=== PATIENT | female | born 1945 | race Caucasian/White ===

== ENCOUNTER 2018-01-27 10:01 | Day surgery (SDC) | payer MEDICARE ==
[~2018-01-27] VITALS: Ht 162.6 cm; Wt 102.1 kg
[~2018-01-27 10:01] MED LIST: ACETAZOLAMIDE500 M1 PO; ALEVE220 M1 PO; ALLOPURINOL100 MG PO; ASPIRIN EC81 MG PO; BISOPROLOL FUMAR5 MG PO; CAL MAG ZINC +1 EAC1 PO; CO Q-10300 MG PO; COQ-10100 MG PO; COQ-1030 MG PO; COUMADIN4 MG PO; DILAUDID4 MG PO; DILTIAZEM ER180 MG PO; ESTRADIOL0.5 MG PO; ESTRADIOL1 EA10 TD; FUROSEMIDE40 MG PO; IRON236 MG PO; LANTUS100 UNITS/ SUB-Q; LEVAQUIN500 MG PO; LIPITOR10 MG PO; LISINOPRIL20 MG PO; LOVASTATIN40 MG PO; MAG-OXIDE400 MG PO; MAGNESIUM250 M1 PO; METFORMIN HCL500 M1 PO; METFORMIN HCL500 M2 PO; METFORMIN HCL500 MG PO; METOPROLOL TART50 MG PO; MIRALAX17 GM PO; NORCO 7.5-3251 EACH PO; POTASSIUM GLUC500 MG PO; POTASSIUM99 M1 PO; PRILOSEC20 MG PO; SYNTHROID50 MCG PO; VITAMIN C500 M1 PO; VITAMIN C500 M4 PO; WARFARIN SODIUM4 MG PO; XARELTO10 MG PO
[2018-04-27] MEDS ORDERED: LORATADINE10 M2 PO (09:38)
[2018-04-27] MEDS ORDERED: PROAIR HFA8.5 GM INH (09:38)
[2018-05-11] MEDS ORDERED: COMBIGAN EYE DRO5 ML OU (09:18)
== END 2018-01-27 12:40 | disposition home or self-care (01) ==
LOC: OPS 10:01 → DS 10:01 → OPS 11:15
PROVIDERS: Ophthalmology
PROC: 08923ZZ Drainage of Right Anterior Chamber, Percutaneous Approach (ICD-10-PCS; principal; 2018-01-27 11:15)
DX: H40.1133 Primary open-angle glaucoma, bilateral, severe stage (principal); I48.91 Unspecified atrial fibrillation; E11.9 Type 2 diabetes mellitus without complications; E78.00 Pure hypercholesterolemia, unspecified; M54.9 Dorsalgia, unspecified; K21.9 Gastro-esophageal reflux disease without esophagitis; I10 Essential (primary) hypertension; M19.90 Unspecified osteoarthritis, unspecified site; Z90.49 Acquired absence of other specified parts of digestive tract; Z90.710 Acquired absence of both cervix and uterus; Z96.653 Presence of artificial knee joint, bilateral; Z98.49 Cataract extraction status, unspecified eye; Z98.890 Other specified postprocedural states; Z88.5 Allergy status to narcotic agent; Z88.8 Allergy status to other drugs, medicaments and biological substances; Z79.01 Long term (current) use of anticoagulants; Z79.899 Other long term (current) drug therapy
CPT/HCPCS: 00140; J2250

== ENCOUNTER 2018-02-10 07:09 | Day surgery (SDC) | payer MEDICARE ==
[~2018-02-10] VITALS: Ht 162.6 cm; Wt 102.1 kg
[2018-04-27] MEDS ORDERED: PROAIR HFA8.5 GM INH (09:38)
[2018-04-27] MEDS ORDERED: LORATADINE10 M2 PO (09:38)
[2018-05-11] MEDS ORDERED: COMBIGAN EYE DRO5 ML OU (09:18)
== END 2018-02-10 08:34 | disposition home or self-care (01) ==
LOC: DS 07:09 → OPS 07:09 → DS 08:00 → OPS 08:34
PROVIDERS: Ophthalmology
PROC: 08933ZZ Drainage of Left Anterior Chamber, Percutaneous Approach (ICD-10-PCS; principal; 2018-02-10 08:00)
DX: H40.1133 Primary open-angle glaucoma, bilateral, severe stage (principal); I48.2 Chronic atrial fibrillation; E11.9 Type 2 diabetes mellitus without complications; I10 Essential (primary) hypertension; Z79.899 Other long term (current) drug therapy; Z79.4 Long term (current) use of insulin
CPT/HCPCS: 00140; J2250

== ENCOUNTER 2018-05-28 08:15 | Observation (INO) | payer MEDICARE ==
[~2018-05-28] VITALS: Ht 162.6 cm; Wt 103.6 kg
[~2018-05-28 08:15] MED LIST changes: +COMBIGAN EYE DRO5 ML OU; +LORATADINE10 M2 PO; +PROAIR HFA8.5 GM INH
[2018-05-28] MEDS ORDERED: PRED FORTE1 ML OP (13:57)
[2018-05-28] MEDS ORDERED: OMEPRAZOLE20 MG PO ×2 (15:41)
[2018-05-28] MEDS ORDERED: SUCRALFATE1 GM PO (15:43)
--- NOTE | 2018-05-29 11:29 | EKG ---
[facility] [address] [facility] [place] [address] Signed Atrial fibrillation with intermittent aberrant ventricular conduction Abnormal ECG No previous ECGs available Confirmed by FADI CANTU MD ([id number]) on 05/29/2018 11:29:17 AM Electronically Signed By: FADI CANTU MD 05/29/18 1129 PATIENT NAME: BENTLEY MARTÍNEZ Electrocardiogram DATE OF : 43 PHYSICIAN: FADI CANTU MD REPORT #: [id number] REPORT IS CONFIDENTIAL AND NOT TO BE RELEASED WITHOUT AUTHORIZATION
== END 2018-05-28 16:28 | disposition home or self-care (01) ==
LOC: ED 08:15 → MS 08:17
PROVIDERS: ADMIT Internal Medicine
DX: K21.0 Gastro-esophageal reflux disease with esophagitis (principal); I10 Essential (primary) hypertension; I48.91 Unspecified atrial fibrillation; E11.9 Type 2 diabetes mellitus without complications; H40.9 Unspecified glaucoma; E78.5 Hyperlipidemia, unspecified; M10.9 Gout, unspecified; Z88.5 Allergy status to narcotic agent; Z88.8 Allergy status to other drugs, medicaments and biological substances; Z79.01 Long term (current) use of anticoagulants; Z79.890 Hormone replacement therapy; Z79.4 Long term (current) use of insulin; Z79.899 Other long term (current) drug therapy
CPT/HCPCS: 71045; 80053; 83690; 84484; 85025; 85610; 93005; 93010; 96374; 99285; G0378

== ENCOUNTER 2018-08-31 09:23 | Emergency (ER) | payer MEDICARE ==
[~2018-08-31] VITALS: Ht 162.6 cm; Wt 103.4 kg
--- OUTSIDE RECORDS SUMMARY | ~2018-08-31 | XMS | Clinical Summary ---
Demographics + + + | Address | [address] | | | [place] [address] | + + + | Home Phone | | + + + | Preferred Language | Unknown | + + + | Marital Status | Single | + + + | Christianity Affiliation | 1013 | + + + | Race | Unknown | + + + | Ethnic Group | Unknown | + + + Author + + + | Author | [facility] [employer] | + + + | Organization | [facility] [facility] | + + + | Address | Unknown | + + + | Phone | Unavailable | + + + Support + + +---------+ + | Name | Relationship | Address | Phone | + + +---------+ + | June Will | ECON | Unknown | | + + +---------+ + | Georgia Moran | ECON | Unknown | | + + +---------+ + Care Team Providers + +------+ + | Care Roof Promenade Tile Setter Name | Role | Phone | + +------+ + | Barry Manzo DO | PP | | + +------+ + Allergies + + + + + + | Active Allergy | Reactions | Severity | Noted | Comments | | | | | Date | | + + + + + + | Lovastatin | Other (See Comments) | Medium | 10/09/20 | Pt cannot remember | | | | | 17 | reaction | + + + + + + | Oxycodone-Acetaminop | Palpitations | Medium | 10/09/20 | | | hen | | | 17 | | + + + + + + | Pravastatin | Other (See Comments) | Medium | 10/09/20 | Pt cannot remember | | | | | 17 | reaction | + + + + + + | Simvastatin | Other (See Comments) | Medium | 10/09/20 | Pt cannot remember | | | | | 17 | reaction | + + + + + + Current Medications + + +---------+---------+------+------+-------+ | Prescription | Sig. | Disp. | Refills | Star | End | Statu | | | | | | t | Date | s | | | | | | Date | | | + + +---------+---------+------+------+-------+ | allopurinol | Take 100 mg by mouth | | | 08/30 | | Activ | | (ZYLOPRIM) 100 MG | daily. | | | 02/16 | | e | | tablet | | | | 17 | | | + + +---------+---------+------+------+-------+ | diltiazem | Take 180 mg by mouth | | | 07/31 | | Activ | | (CARDIZEM CD) 180 MG | daily. | | | 2/20 | | e | | 24 hr capsule | | | | 17 | | | + + +---------+---------+------+------+-------+ | lisinopril | Take 20 mg by mouth | | | 08/30 | | Activ | | (ZESTRIL) 20 MG | daily. | | | 20 | | e | | tablet | | | | 17 | | | + + +---------+---------+------+------+-------+ | levothyroxine | Take 0.5 mcg by | | | 10/1 | | Activ | | (SYNTHROID) 50 MCG | mouth daily. | | | 20 | | e | | tablet | | | | 17 | | | + + +---------+---------+------+------+-------+ | omeprazole | Take 20 mg by mouth | | | 10/ | | Activ | | (PRILOSEC) 20 MG | daily. | | | 02/16 | | e | | capsule | | | | 17 | | | + + +---------+---------+------+------+-------+ | metFORMIN | Take 500 mg by mouth | | | 10/1 | | Activ | | (GLUCOPHAGE) 500 MG | 2 (two) times | | | 02/16 | | e | | tablet | daily. | | | 17 | | | + + +---------+---------+------+------+-------+ | warfarin | Take 4.5 mg by mouth | | | 08 | | Activ | | (COUMADIN) 4 MG | daily. | | | 12/19 | | e | | tablet | | | | 17 | | | + + +---------+---------+------+------+-------+ | potassium chloride | Take 20 mEq by mouth | | | 10/ | | Activ | | SA (BRADY CISNEROS) | daily. | | | /20 | | e | | 20 MEQ tablet | | | | 17 | | | + + +---------+---------+------+------+-------+ | atorvastatin | Take 10 mg by mouth | | | 11/0 | | Activ | | (LIPITOR) 10 MG | daily. | | | 2/20 | | e | | tablet | | | | 17 | | | + + +---------+---------+------+------+-------+ | bisoprolol | Take 5 mg by mouth | | | / | | Activ | | (ZEBETA) 5 MG tablet | daily. | | | 2/20 | | e | | | | | | 17 | | | + + +---------+---------+------+------+-------+ | insulin glargine | Inject 25 Units into | | | | | Activ | | (LANTUS) 100 UNIT/ML | the skin nightly. | | | | | e | | injection | | | | | | | + + +---------+---------+------+------+-------+ | | Place 1 drop into | | | | | Activ | | brimonidine-timolol | both eyes every 12 | | | | | e | | (COMBIGAN) 0.2-0.5 % | (twelve) hours. | | | | | | | ophthalmic solution | | | | | | | + + +---------+---------+------+------+-------+ | lidocaine | Apply up to 10 ml | 50 mL | 1 | / | 10/01 | Activ | | (XYLOCAINE) 4 % | topically to wound | | | 08/19 | 08/19 | e | | external solution | base during dressing | | | 17 | 18 | | | | changes every other | | | | | | | | day. | | | | | | + + +---------+---------+------+------+-------+ | latanoprost | Place 1 drop into | | | 12/ | | Activ | | (XALATAN) 0.005 % | both eyes 2 (two) | | | 3/20 | | e | | ophthalmic solution | times daily. | | | 17 | | | + + +---------+---------+------+------+-------+ | acetaZOLAMIDE | Take 125 mg by mouth | | | 12/31 | | Activ | | (DIAMOX) 250 MG | 3 (three) times | | | 05/19 | | e | | tablet | daily. Take 12/01 a | | | 18 | | | | | tablet twice per day | | | | | | | | | | | | | | + + +---------+---------+------+------+-------+ | pilocarpine | Place 1 drop into | | | | | Activ | | (PILOCAR) 1 % | both eyes 3 (three) | | | | | e | | ophthalmic solution | times daily. | | | | | | + + +---------+---------+------+------+-------+ | prednisoLONE | Place 1 drop into | | | | | Activ | | acetate (PRED FORTE) | both eyes every 4 | | | | | e | | 1 % ophthalmic | (four) hours. 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) | 10/09/2017 | + + + | Hyperlipidemia | 10/09/2017 | + + + | Atrial fibrillation (HCC) | 10/09/2017 | + + + | Hypothyroidism | 10/09/2017 | + + + | Skin ulcer of left calf, limited to breakdown of skin (HCC) | 10/09/2017 | + + + | Venous ulcer of left leg (HCC) | 10/09/2017 | + + + | Venous insufficiency | 10/09/2017 | + + + Encounters +--------+ + + + + | Date | Type | Specialty | Care Team | Description | +--------+ + + + + | 06/15/ | Documentati | | Shira Lainez | Other (alba | | 2018 | on Only | | J, [facility]ES[facility] | monitor) | +--------+ + + + + from Last 3 Months Family History + + +------+ + | Medical History | Relation | Name | Comments | + + +------+ + | Aneurysm | Mother | | | + + +------+ + | Coronary art dis | Paternal | | | | | Grandfath | | | | | er | | | + + +------+ + + +------+ + + | Relation | Name | Status | Comments | + +------+ + + | Father | | | unknown history | + +------+ + + | Mother | | | | + +------+ + + | Paternal Grandfather | | | | + +------+ + + Social History + +-------+ +--------+------+ | Tobacco Use | Types | Packs/Day | Years | Date | | | | | Used | | + +-------+ +--------+------+ | Never Smoker | | | | | + +-------+ +--------+------+ + +---+---+---+ | Smokeless Tobacco: | | | | | Never Used | | | | + +---+---+---+ + + +---------+ + | Alcohol Use | Drinks/We | oz/Week | Comments | | | ek | | | + + +---------+ + | No | | | rare | + + +---------+ + + + + | Sex Assigned at | Date Recorded | | | | + + + | Not on file | | + + + Last Filed Vital Signs + + + + | Vital Sign | Reading | Time Taken | + + + + | Blood Pressure | 140/82 | 02/10/2018 1:51 PM PDT | + + + + | Pulse | 79 | 02/10/2018 1:51 PM PDT | + + + + | Temperature | 36.4 C (97.5 F) | 02/10/2018 1:51 PM PDT | + + + + | Respiratory Rate | 18 | 01/20/2018 1:39 PM PST | + + + + | Oxygen Saturation | 98% | 12/02/2017 11:14 AM PST | + + + + | Inhaled Oxygen | - | - | | Concentration | | | + + + + | Weight | 103 kg (227 lb) | 12/02/2017 11:14 AM PST | + + + + | Height | 160 cm (5' 3") | 12/02/2017 11:14 AM PST | + + + + | Body Mass Index | 40.21 | 12/02/2017 11:14 AM PST | + + + + Plan of Treatment +--------+ + + + + | Date | Type | Specialty | Care Team | Description | +--------+ + + + + | 11/17/ | Initial | | Carmelita Tucker, | | | 2017 | consult | | MD Arianna Allen | | | | | | Dr [address], | | | | | | [place] [address] | | | | | | [phone] | | | | | | | | +--------+ + + + + + + + + + | Health Maintenance | Due Date | Last Done | Comments | + + + + + | Diabetic Eye Exam | | | | | | 4 | | | + + + + + | Diabetic Foot Exam | | | | | | 4 | | | + + + + + | Hemoglobin A1c | | | | | | 4 | | | + + + + + | Microalbumin | | | | | Screening | 4 | | | + + + + + | Vaccine: | | | | | Dtap/Tdap/Td (1 - | 3 | | | | Tdap) | | | | + + + + + | Breast Cancer | | | | | Screening | 4 | | | | (Mammogram) | | | | + + + + + | Colon Cancer | | | | | Screening | 4 | | | | (Colonoscopy) | | | | + + + + + | Vaccine: Zoster (1 | | | | | of 2) | 4 | | | + + + + + | DEXA SCAN SCREENING | | | | | | 9 | | | + + + + + | Vaccine: | | | | | Pneumococcal 65+ | 9 | | | | Low/Medium Risk (1 | | | | | of 2 - PCV13) | | | | + + + + + | Vaccine: Influenza | | | | | (#1) | 8 | | | + + + + + Results Not on filefrom Last 3 Months Insurance + +--------+ +------+-------+ + | Payer | Benefi | Subscriber | Type | Phone | Address | | | t Plan | ID | | | | | | / | | | | | | | Group | | | | | + +--------+ +------+-------+ + | MEDICARE | MEDICA | [id number] | | | [address] | | | RE | | | | [place] [id number] | | | IP-OP | | | | | + +--------+ +------+-------+ + | [facility] | [place] | [id number] | | | | | | | | | | | | | HEALTH | | | | | | | CARE - | | | | | | | AARP | | | | | + +--------+ +------+-------+ + + +--------+ +--------+ + + | Guarantor Name | Accoun | Relation to | Date | Phone | Billing Address | | | t Type | Patient | of | | | | | | | | | | + +--------+ +--------+ + + | BENTLEY LUBIN | Person | Self [birth year] Home: | [address] | | | al/Fam | | [phone] | [phone] [address] [place] | | | loan | | | [phone] | [phone] | + +--------+ +--------+ + +
--- OUTSIDE RECORDS SUMMARY | ~2018-08-31 | XMS | Encounter Summary ---
Demographics + + + | Address | [address] | | | [place] [address] | + + + | Home Phone | | + + + | Preferred Language | Unknown | + + + | Marital Status | Single | + + + | Uatsdin Affiliation | 1013 | + + + | Race | Unknown | + + + | Ethnic Group | Unknown | + + + Author + + + | Author | [facility] [employer] [facility] | + + + | Organization | [facility] | + + + | Address [...] Team Providers + +------+ + | Care Airfield Services Officer Name | Role | Phone | + +------+ + | Barry Manzo DO | PCP | | + +------+ + Reason for Visit +--------+ + | Reason | Comments | +--------+ + | Other | holter monitor | +--------+ + Encounter Details +--------+ + + + + | Date | Type | Department | Care Team | Description | +--------+ + + + + | 06/15/ | Connor | [facility] | Shira Lainez | Other (holter | | 2018 | on Only | Cardiology [facility] | Man, LESLI | monitor) | | | | [address] | | | | | | [place] | | | | | | [phone] | | | | | | [phone] | | | +--------+ + + + + Social History + +-------+ +--------+------+ [...] on file | | + + + as of this encounter Plan of Treatment +--------+ + + + + | Date | Type | Specialty | Care Team | Description | +--------+ + + + + | 11/17/ | Initial | Cardiology | Carmelita Tucker, | | | 2018 | consult | | MD Arianna Allen | | | | | | Dr [address], | | | | | | [place] [address] | | | | | | [phone] | | | | | | | | +--------+ + + + + as of this encounter Visit Diagnoses Not on filein this encounter"
[~2018-08-31 09:23] MED LIST changes: +OMEPRAZOLE20 MG PO; +PRED FORTE1 ML OP; +SUCRALFATE1 GM PO; +VENTOLIN HFA18 GM INH
[2018-08-31] MEDS ORDERED: LASIX20 MG PO (11:11)
[2018-08-31] MEDS ORDERED: POTASSIUM CHLO10 MEQ PO (11:11)
== END 2018-08-31 11:23 | disposition home or self-care (01) ==
LOC: ED 09:23
DX: I11.0 Hypertensive heart disease with heart failure (principal); I50.9 Heart failure, unspecified; E11.9 Type 2 diabetes mellitus without complications; I48.91 Unspecified atrial fibrillation; Z88.8 Allergy status to other drugs, medicaments and biological substances; Z79.899 Other long term (current) drug therapy; Z88.5 Allergy status to narcotic agent; Z79.01 Long term (current) use of anticoagulants; Z79.4 Long term (current) use of insulin; Z79.52 Long term (current) use of systemic steroids
CPT/HCPCS: 71046; 80048; 85025; 85610; 85730; 99285

== ENCOUNTER 2022-08-09 15:46 | Emergency (ER) | payer MEDICARE ==
[~2022-08-09] VITALS: Ht 162.6 cm; Wt 103.4 kg
[~2022-08-09 15:46] MED LIST changes: -COUMADIN4 MG PO; +DILTIAZEM 24HR120 M1 PO; +DORZOLAMIDE-TI1 EACH OU; +FML FORTE5 ML OU; +LASIX20 MG PO; +LEVOTHYROXINE50 MCG PO; +LEVOTHYROXINE75 MCG PO; +LISINOPRIL10 MG PO; +POTASSIUM CHLO10 MEQ PO
== END 2022-08-09 18:09 | disposition home or self-care (01) ==
LOC: ED 15:46
DX: U07.1 COVID-19 (principal); I10 Essential (primary) hypertension; E11.9 Type 2 diabetes mellitus without complications; I48.91 Unspecified atrial fibrillation; Z88.8 Allergy status to other drugs, medicaments and biological substances; Z88.5 Allergy status to narcotic agent; Z79.899 Other long term (current) drug therapy; Z79.84 Long term (current) use of oral hypoglycemic drugs; Z79.01 Long term (current) use of anticoagulants; Z79.4 Long term (current) use of insulin
CPT/HCPCS: 87502; 99283; C9803; U0003

== ENCOUNTER 2023-09-29 09:11 | Emergency (ER) | payer MEDICARE, OTHER ==
[~2023-09-29] VITALS: Ht 162.6 cm; Wt 94.9 kg
[~2023-09-29 09:11] MED LIST changes: +FEOSOL325 MG PO; +REPAGLINIDE0.5 MG PO; +VITAMIN C250 MG PO
[2023-09-29 09:33] LABS: EOSINOPHILS 3.5 % (0-6); HEMATOCRIT 35.2 % (35.0-50.0); HEMOGLOBIN 11.9 g/dL (12.0-18.0); LYMPHOCYTES 17.2 % (24-44); MCH 29.4 (27-36); MCHC 33.6 g/dl (30-36); MCV 87.3 fl (81-99); MONOCYTES 9.8 % (0-12); NEUTROPHILS 68.5 % (39-80); PLATELET COUNT 308 K/uL (140-440); RBC 4.04 M/ul (4.3-5.7); RDW 15.9 (10.5-15.0)
[2023-09-29 09:44] LABS: INR 2.43 (0.80-1.30); PROTIME 25.6 Sec (11.2-14.2)
[2023-09-29 09:51] LABS: ALBUMIN 3.5 g/dL (3.4-5.0); ALBUMIN/GLOBULIN RATIO 0.83 (1.1-2.4); ANION GAP 13.3 (7-21); BILIRUBIN, TOTAL 0.6 ng/dL (0.2-1.0); BUN/CREATININE RATIO 15.38 (6.0-28.6); CALCIUM 8.6 mg/dL (8.5-10.1); CREATININE, SERUM 1.04 mg/dL (0.55-1.02); POTASSIUM 4.3 mmol/L (3.5-5.1); PROTEIN, TOTAL 7.7 g/dL (6.4-8.2)
[2023-09-29] MEDS ORDERED: ONDANSETRON HCL4 MG PO (12:04)
[2023-09-29 12:19] VITALS: BP 154/102
--- NOTE | 2023-09-29 22:50 | EKG ---
[facility] [address] [place] [address] Signed Atrial fibrillation with premature ventricular or aberrantly conducted complexes Abnormal ECG When compared with ECG of 28-MAY-2018 08:19, No significant change was found Confirmed by Isiah Díaz MD () on 09/29/2023 10:49:49 PM Electronically Signed By: ISIAH DÍAZ MD 09/29/23 2250 PATIENT NAME: BENTLEY MARTÍNEZ Electrocardiogram DATE OF : 43 PHYSICIAN: ISIAH DÍAZ MD REPORT #: [id number] REPORT IS CONFIDENTIAL AND NOT TO BE RELEASED WITHOUT AUTHORIZATION
== END 2023-09-29 12:15 | disposition home or self-care (01) ==
LOC: ED 09:11
PROVIDERS: Internal Medicine
DX: R42 Dizziness and giddiness (principal); R07.89 Other chest pain; I48.91 Unspecified atrial fibrillation; D64.9 Anemia, unspecified; I10 Essential (primary) hypertension; E11.9 Type 2 diabetes mellitus without complications; Z79.01 Long term (current) use of anticoagulants; Z79.84 Long term (current) use of oral hypoglycemic drugs; Z79.4 Long term (current) use of insulin; Z79.899 Other long term (current) drug therapy; Z88.8 Allergy status to other drugs, medicaments and biological substances; Z88.5 Allergy status to narcotic agent
CPT/HCPCS: 36415; 70450; 71045; 80053; 84484; 85025; 85610; 93005; 93010; J2405

== ENCOUNTER 2024-01-13 09:14 | Emergency (ER) | payer MEDICARE, OTHER ==
[~2024-01-13] VITALS: Ht 162.6 cm; Wt 93.2 kg
[~2024-01-13 09:14] MED LIST changes: +KLOR-CON 1010 MEQ PO; +LANTUS SOL100 UNIT/1 SUB-Q; +MECLIZINE HCL25 MG PO; +ONDANSETRON HCL4 MG PO
--- OUTSIDE RECORDS SUMMARY | 2024-01-13 09:19 | XMS ---
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 Fer has no Care Guidelines for this patient. [facility] NOTE: Visits indicate total known visits. ED/C VISIT TRACKING (12 MO.) 01/13/2024 09:[address] [facility] [place] TYPE: Emergency COMPLAINT: - NOSE BLEED 01/07/2024 07:44 [facility] [place] TYPE: Emergency COMPLAINT: - CHEST PAIN, SOB DIAGNOSES: - Allergy status to narcotic agent - Allergy status to other drugs, medicaments and biological substances - Chest pain, unspecified - Heart failure, unspecified - Hypertensive heart disease with heart failure - buttermilk drier operator (current) use of anticoagulants - buttermilk drier operator (current) use of insulin - buttermilk drier operator (current) use of oral hypoglycemic drugs - Other buttermilk drier operator (current) drug therapy - Type 2 diabetes mellitus without complications - Unspecified atrial fibrillation - Unspecified glaucoma 09/29/2023 09:12 [facility] [place] TYPE: Emergency COMPLAINT: - CHEST PAIN DIAGNOSES: - Allergy status to narcotic agent - Allergy status to other drugs, medicaments and biological substances - Anemia, unspecified - Dizziness and giddiness - Essential (primary) hypertension - buttermilk drier operator (current) use of anticoagulants - buttermilk drier operator (current) use of insulin - nursing home (current) use of oral hypoglycemic drugs - Other chest pain - Other [facility] (current) drug therapy - Type 2 diabetes mellitus without complications - Unspecified atrial fibrillation INPATIENT VISIT TRACKING (12 MO.) No inpatient visits to display in this time frame [email or web address]
[2024-01-13 09:58] LABS: BASOPHILS 0.9 % (0-2); EOSINOPHILS 2.9 % (0-6); HEMATOCRIT 35.2 % (35.0-50.0); HEMOGLOBIN 11.6 g/dL (12.0-18.0); LYMPHOCYTES 15.7 % (24-44); MCH 27.9 (27-36); MCHC 32.8 g/dl (30-36); MONOCYTES 8.2 % (0-12); NEUTROPHILS 72.3 % (39-80); PLATELET COUNT 308 K/uL (140-440); RBC 4.14 M/ul (4.3-5.7); RDW 15.9 (10.5-15.0)
[2024-01-13 10:15] LABS: INR 2.77 (0.80-1.30); PROTIME 28.9 Sec (11.2-14.2)
== END 2024-01-13 11:01 | disposition home or self-care (01) ==
LOC: ED 09:14
PROVIDERS: Emergency Medicine
DX: R04.0 Epistaxis (principal); I10 Essential (primary) hypertension; E11.9 Type 2 diabetes mellitus without complications; I48.91 Unspecified atrial fibrillation; Z88.8 Allergy status to other drugs, medicaments and biological substances; Z79.01 Long term (current) use of anticoagulants; Z79.4 Long term (current) use of insulin; Z79.890 Hormone replacement therapy; Z79.899 Other long term (current) drug therapy
CPT/HCPCS: 36415; 85025; 85610

== ENCOUNTER 2024-08-09 05:58 | Emergency (ER) | payer MEDICARE, OTHER ==
[~2024-08-09] VITALS: Ht 162.6 cm; Wt 86.0 kg
[~2024-08-09 05:58] MED LIST changes: +LISINOPRIL5 MG PO; +MAG6464 MG PO; +METOPROLOL SUCC50 MG PO; +WARFARIN SODIUM2 MG PO
[2024-08-09] MEDS ORDERED: LASIX20 MG (06:15)
[2024-08-09 06:27] LABS: BASOPHILS 0.7 % (0-2); EOSINOPHILS 2.7 % (0-6); HEMATOCRIT 34.9 % (35.0-50.0); HEMOGLOBIN 11.1 g/dL (12.0-18.0); LYMPHOCYTES 15.4 % (24-44); MCH 26.1 (27-36); MCHC 31.9 g/dl (30-36); MCV 81.9 fl (81-99); MONOCYTES 7.8 % (0-12); NEUTROPHILS 73.4 % (39-80); PLATELET COUNT 293 K/uL (140-440); RBC 4.27 M/ul (4.3-5.7); RDW 16.9 (10.5-15.0)
[2024-08-09 06:49] LABS: ALBUMIN 3.3 g/dL (3.4-5.0); ALBUMIN/GLOBULIN RATIO 0.77 (1.1-2.4); ANION GAP 15.4 (7-21); BILIRUBIN, TOTAL 0.5 ng/dL (0.2-1.0); BUN/CREATININE RATIO 14.52 (6.0-28.6); CALCIUM 9.1 mg/dL (8.5-10.1); CREATININE, SERUM 1.17 mg/dL (0.55-1.02); POTASSIUM 4.4 mmol/L (3.5-5.1); PROTEIN, TOTAL 7.6 g/dL (6.4-8.2)
[2024-08-09] MEDS ORDERED: FUROSEMIDE 40 MG/4 ML VIAL IV ONE (07:00)
[2024-08-09 07:03] LABS: INFLUENZA B NAA NEGATIVE (NEGATIVE); RESPIRATORY SYNCYTIAL VIR NAA NEGATIVE (NEGATIVE)
[2024-08-09 09:27] VITALS: BP 132/100
--- NOTE | 2024-08-09 21:37 | EKG ---
[facility] [address] [place] [address] Signed Atrial fibrillation with rapid ventricular response with premature ventricular or aberrantly conducted complexes Nonspecific ST abnormality Abnormal ECG When compared with ECG of 07-JAN-2024 07:47, No significant change was found Confirmed by Isiah Díaz MD () on 08/09/2024 9:37:06 PM Electronically Signed By: ISIAH DÍAZ MD 08/09/24 2137 PATIENT NAME: BENTLEY MARTÍNEZ Electrocardiogram DATE OF : 43 PHYSICIAN: ISIAH DÍAZ MD REPORT #: [id number] REPORT IS CONFIDENTIAL AND NOT TO BE RELEASED WITHOUT AUTHORIZATION
== END 2024-08-09 09:27 | disposition home or self-care (01) ==
LOC: ED 05:58
PROVIDERS: Internal Medicine
DX: I11.0 Hypertensive heart disease with heart failure (principal); I50.9 Heart failure, unspecified; E11.9 Type 2 diabetes mellitus without complications; J44.9 Chronic obstructive pulmonary disease, unspecified; Z96.651 Presence of right artificial knee joint; Z88.8 Allergy status to other drugs, medicaments and biological substances; Z88.5 Allergy status to narcotic agent; Z79.899 Other long term (current) drug therapy; Z79.84 Long term (current) use of oral hypoglycemic drugs; Z79.890 Hormone replacement therapy; Z79.4 Long term (current) use of insulin; Z11.52 Encounter for screening for COVID-19
CPT/HCPCS: 36415; 71045; 80053; 83880; 84484; 85025; 87502; 93005; 93010; 96374; 99285-25; J1940; U0002